=== PATIENT | female | born 1960 | race Caucasian/White ===

== ENCOUNTER 2019-12-04 11:19 | Outpatient (CLI) | payer OTHER, SELFPAY ==
--- NOTE | ~2019-12-04 | CT_ITS ---
EXAMINATION: CTA chest PE protocol DATE: 12/04/2019 12:18 CDT INDICATION: Pneumonia. Dyspnea. TECHNIQUE: Computed tomographic angiography (CTA) of the chest was performed with 100 mL Omnipaque-35 0 intravenous contrast. The dose-length product was 458.82 mGy-cm. Maximum intensity projection 3D-re constructions of the aorta and other arteries were constructed by the technologist on a separate work station. Automated exposure control and iterative reconstruction technique were employed. COMPARISON: Chest dated 11/11/2014 FINDINGS: No thoracic lymphadenopathy. Study is suboptimal for evaluation of peripheral pulmonary emb olism due to timing of contrast bolus. No large central pulmonary embolism is identified. Small left pleural effusion. Elevated right diaphragm. Small pericardial effusion. No evidence for aortic aneury sm or dissection. There is left lower lobe peripheral consolidation which may represent atelectasis o r developing pneumonia. There is right basilar atelectasis. No endobronchial lesion. IMPRESSION: 1. Limited study for evaluation of peripheral pulmonary arteries. No evidence for large central pulmo nary embolism. 2: Peripheral consolidation left lower lobe which may represent atelectasis or developing pneumonia. 3: Small left pleural effusion. 4: Small pericardial effusion. Reviewed, dictated and finalized at location A. IMPRESSION: 1. Limited study for evaluation of peripheral pulmonary arteries. No evidence f or large central pulmonary embolism. 2: Peripheral consolidation left lower lobe which may represent atelectasis or developing pneumonia. 3: Small left pleural effusion. 4: Small pericardial effusion.
[2019-12-04 11:56] LABS: Estimated Glomerular Filt Rate > 60
== END 2019-12-04 11:20 | disposition home or self-care (01) ==
PROVIDERS: PCP Family Medicine; Visit Provider Family Medicine
DX: J18.9 Pneumonia, unspecified organism (principal); R06.09 Other forms of dyspnea; J90 Pleural effusion, not elsewhere classified; I31.3 Pericardial effusion (noninflammatory)
CPT/HCPCS: 36415; 71275; Q9967

== ENCOUNTER 2020-06-30 10:49 | Outpatient (CLI) | payer OTHER, SELFPAY ==
--- NOTE | ~2020-06-30 | MR_ITS ---
EXAMINATION: MR knee LT wo con DATE: 06/30/2020 11:36 INDICATION: Left knee pain TECHNIQUE: Magnetic resonance imaging (MRI) of the left knee was performed without intravenous contra st. Sequences included coronal PD-weighted FSE, coronal PD-weighted FS FSE, sagittal T2-weighted FSE , sagittal PD-weighted FS FSE and axial PD weighted fat saturated FSE. COMPARISON: None. FINDINGS: Medial compartment: Medial meniscus is normal. Articular cartilage is normal. Lateral compartment: Complex lateral meniscal tear including a displaced bucket-handle flap which is seen extending anteri or to posteriorly along the lateral aspect of the intercondylar eminence. Partial-thickness cartilage loss with chondral surface irregularity at the lateral tibial plateau where there is underlying subc hondral edema. Additional partial thickness cartilage loss which appears to involve greater than 50% the cartilage thickness at the central weightbearing lateral femoral condyle. There is a subtle conca vity to the articular cortex at the anterior weightbearing lateral femoral condyle with underlying velazco barticular edema consistent with an either impaction or stress fracture. The overlying articular cart ilage appears to remain intact. Patellofemoral compartment: Deep chondral fissuring with minimal underlying subarticular edema at the medial patellar facet. 4 x 6 mm deep chondral ulceration with minimal underlying cortical irregularity at the inferior aspect of the medial trochlea. Ligaments and tendons: Anterior and posterior cruciate ligaments are normal. The medial collateral ligament and fibular miguel ateral ligament complex are normal. Minimal patellar and distal quadriceps tendinopathy. The visualiz ed medial and lateral hamstring tendons as well as the iliotibial band are normal. Fluid: Moderate-sized left knee joint effusion with mild synovitis at the suprapatellar pouch and more promi nent synovitis along the posterior margin of Hoffa's fat pad. No loose osteochondral bodies identifie d. Mcnair's cyst measuring 5.7 x 1.8 x 2.3 cm. Osseous/other: Minimal lateral patellar subluxation. No pathologic marrow replacing process. Subcutaneous varicositi es at the anterior and medial sides of the knee. IMPRESSION: 1. Complex lateral meniscal tear including medially displaced bucket-handle flap. 2. Mild marrow edema surrounding a shallow concavity to the articular cortex at the anterior weightbe aring lateral femoral condyle which could represent sequela prior impaction fracture or more chronic stress fracture potentially related to altered stress distribution resulting from the meniscal tear. 3. Mild lateral and patellofemoral osteoarthritis with regions of moderate to high-grade chondromalac ia. 4. Moderate sized left knee joint effusion and moderate-sized Mcnair's cyst. Reviewed, dictated and finalized at location A. IMPRESSION: 1. Complex lateral meniscal tear including medially displaced bucket-handle fla p. 2. Mild marrow edema surrounding a shallow concavity to the articular cortex at the anterior weightbearing lateral femoral condyle which could represent seque la prior impaction fracture or more chronic stress fracture potentially related to altered stress distribution resulting from the meniscal tear. 3. Mild lateral and patellofemoral osteoarthritis with regions of moderate to h igh-grade chondromalacia. 4. Moderate sized left knee joint effusion and moderate-sized Mcnair's cyst.
== END 2020-06-30 10:50 | disposition home or self-care (01) ==
LOC: ANHIMG 10:54
PROVIDERS: PCP Family Medicine; Visit Provider Nurse Practitioner Family
DX: S83.252A Bucket-handle tear of lateral meniscus, current injury, left knee, initial encounter (principal); M17.12 Unilateral primary osteoarthritis, left knee; M25.462 Effusion, left knee; M71.22 Synovial cyst of popliteal space [Baker], left knee; X58.XXXA Exposure to other specified factors, initial encounter
CPT/HCPCS: 73721

== ENCOUNTER 2020-07-29 14:57 | Outpatient (CLI) | payer OTHER, SELFPAY ==
--- NOTE | ~2020-07-29 | US_ITS ---
EXAMINATION: US venous doppler [facility] DATE: 07/29/2020 15:51 INDICATION: Left lower limb pain and swelling TECHNIQUE: Grayscale ultrasound images without and with compression and Doppler ultrasound images of the left lower extremity veins were obtained. COMPARISON: None. FINDINGS: The visualized portions of left common femoral vein, profunda (deep) femoral vein, femoral vein, popl iteal vein, peroneal veins, posterior tibial veins, gastrocnemius vein and greater saphenous vein out flow are patent. 5.1 x 0.7 x 2.6 cm Mcnair cyst at the left popliteal fossa. IMPRESSION: 1. No deep venous thrombosis in the left lower limb. 2. Small left Mncair's cyst. Reviewed, dictated and finalized at location . INSPECTOR IMPRESSION: 1. No deep venous thrombosis in the left lower limb. 2. Small left Mcnair's cyst.
== END 2020-07-29 14:58 | disposition home or self-care (01) ==
PROVIDERS: PCP Family Medicine; Visit Provider Nurse Practitioner Family
DX: M79.89 Other specified soft tissue disorders (principal); Z86.718 Personal history of other venous thrombosis and embolism; M71.22 Synovial cyst of popliteal space [Baker], left knee
CPT/HCPCS: 93971

== ENCOUNTER 2020-08-23 01:08 | Outpatient (CLI) | payer BC, SELFPAY ==
[2020-08-23 20:15] LABS: SARS-CoV-2 RNA PCR Negative
== END 2020-08-23 01:09 | disposition home or self-care (01) ==
LOC: ANHCOVIDDT 01:08
PROVIDERS: PCP Family Medicine; Visit Provider Orthopaedic Surgery
DX: Z01.818 Encounter for other preprocedural examination (principal); Z20.828 Contact with and (suspected) exposure to other viral communicable diseases
CPT/HCPCS: 87635; C9803; U0003

== ENCOUNTER 2020-08-23 07:48 | Outpatient (CLI) | payer BC, SELFPAY ==
--- NOTE | 2020-08-23 | ECG_ITS ---
Measurements Intervals [place] Rate: 61 P: 3 UT: 174 QRS: -12 QRSD: 125 T: -5 QT: 425 QTc: 430 Interpretive Statements SINUS RHYTHM VOLTAGE CRITERIA FOR LVH MINIMAL Q WAVES- HIGH LATERAL LEADS BORDERLINE T WAVE ABNORMALITY- ANT/INF LEADS BORDERLINE ECG Electronically Signed On 08-23-2020 13:39:33 CIPHER EXPERT by Aman Navarro D.O.
[2020-08-23 08:42] LABS: Anion Gap 4 mmol/L (8-16); Blood Urea Nitrogen 10 mg/dL (7-17); Calcium 9.5 mg/dL (8.4-10.2); Carbon Dioxide 34 mmol/L (22-30); Chloride 101 mmol/L (98-107); Estimated Glomerular Filt Rate > 60; Glucose 96 mg/dL (65-105); Potassium 4.1 mmol/L (3.4-5.0); Sodium 139 mmol/L (137-145)
== END 2020-08-23 07:49 | disposition home or self-care (01) ==
PROVIDERS: PCP Family Medicine; Visit Provider Anesthesiology
DX: Z01.818 Encounter for other preprocedural examination (principal); I10 Essential (primary) hypertension; R94.31 Abnormal electrocardiogram [ECG] [EKG]
CPT/HCPCS: 36415; 80048; 93005

== ENCOUNTER 2020-08-27 00:31 | Day surgery (SDC) | payer BC, SELFPAY ==
[2020-08-21 09:15] VITALS: BMI 28.3
--- NOTE | 2020-08-26 14:10 | WPDANESEPPF ---
Anes - Initial Pre Proc Eval Procedure: Operation Date: 08/27/20 13:00 Proposed Procedures p Left Knee Arthroscopy, Abrasion Arthroplasty, Proceed As Indicated - Tramaine Lanier MD Date/Time: 08/26/20 14:10 Surgeon: Tramaine Lanier MD Pre Op Diagnosis: Left Knee Lateral Meniscus Tear Patient Data Age: 60 Gender: F Height: 1.65 m Weight: 77.15 kg Allergies Allergy/AdvReac Type Severity Reaction Status Date / Time aspirin Allergy Severe Anaphylactic Verified 08/27/20 11:18 Shock NSAIDS (Non-Steroidal Allergy Severe Anaphylactic Verified 08/27/20 11:18 Anti-Inflamma Shock Home Medications Medication Instructions Recorded Confirmed Type cyclobenzaprine 10 mg tablet 10 mg PO TID #270 tablet 05/12/20 08/21/20 Rx montelukast 10 mg tablet 10 mg PO DAILY #90 tablet 06/03/20 08/27/20 Rx omeprazole 40 mg capsule,delayed 40 mg PO DAILY #90 cap 06/03/20 08/27/20 Rx release diltiazem HCl 180 mg 180 mg PO DAILY 06/23/20 08/27/20 History capsule,extended release 24 hr fluticasone propionate 50 2 spray INTRANASAL DAILY 06/23/20 08/27/20 History mcg/actuation nasal spray,suspension pregabalin 100 mg capsule 100 mg PO TID #90 cap 07/04/20 08/27/20 Rx chlorhexidine gluconate 4 % 1 applic TOPICAL ONCE #237 ml 07/08/20 08/27/20 Rx topical liquid fexofenadine-pseudoephedrine ER 1 tablet PO DAILY #30 tablet 07/31/20 08/27/20 Rx 180 mg-240 mg tablet,ext.release 24 hr albuterol sulfate 90 mcg/actuation 2 inh INHALATION Q4H PRN #6.7 g 08/20/20 08/27/20 Rx aerosol inhaler Breo Ellipta 1 inh INHALATION QAM 08/21/20 08/27/20 History biotin 5 mg PO DAILY 08/21/20 08/27/20 History furosemide 20 mg PO QPM 08/21/20 08/27/20 History Patient hx anesthesia problems: none Family hx anesthesia problems: none PMFSH Past Medical History Medical History (Updated 08/26/20 @ 14:10 by Zander Leon DO) Asthma Atrial fibrillation B12 deficiency anemia Dyspnea Effusion, left knee 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 Hypertension Lateral meniscus tear Left knee pain Leg swelling Myalgia and myositis, unspecified LUCAS (obstructive sleep apnea) Paralysis, diaphragm Patellofemoral pain syndrome Radiculopathy, cervicothoracic region Right foot pain Spinal stenosis, cervical region Vitamin D deficiency Family History Family History Father Hypertension Mother Cerebrovascular accident Family history of diabetes mellitus in first degree relative Family history of coronary artery disease Other Diabetes mellitus Family history of lung cancer Social History Social History Smoking packs per day: 0.5 Smoking cigarettes per day: 10.0 Years smoked: 2 Smoking pack-years: 1.00 Smoking status: Former smoker Tobacco type: cigarettes Smoking end date: 09/12/79 Alcohol intake: current Living arrangements: with family Spiritual care concerns: No Anes - Eval Final PreProcedure Day of Procedure 08/26/20 14:10 Patient weight: overweight Heart: regular rate and rhythm Lungs: clear to auscultation and normal air movement Airway: Mallampati scale class II Neurological: alert and oriented Last oral intake: >/= 8 hours ASA classification: III Emergent: no Anesthetic plan: proceed Anesthesia type and monitoring: general LMA and standard monitoring Informed Consent: The patient's anesthetic plan and its attendant risks and benefits were discussed with the patient/family/POA. Questions were solicited and answers provided to the satisfaction of the patient/family/POA.
[2020-08-27] VITALS (9 sets, daily range): BP systolic 120–144; BP diastolic 81–92; PULSE 51–97; RESP 12–16; TEMP 36.2–36.6; O2SAT 97–100
--- NOTE | 2020-08-27 07:25 | WPDHPUPDATE1 ---
History and Physical Update Update Date/Time: 08/27/20 07:25 History and Physical has been reviewed, including an updated exam of the patient. There are NO changes in the patient's condition. Risks, benefits, and alternatives have been discussed and questions answered. Patient agrees to proceed with procedure.
[2020-08-27] MEDS: ACETAMINOPHEN 500 MG TABLET 1000 MG PO (11:56)
[2020-08-27] MEDS: LACTATED RINGERS 1,000 ML 30 ML IV CONT ×2 (12:00→14:41)
[2020-08-27] MEDS: ceFAZolin 2 GM/D5W 50 ML 2 GM/50 ML BAG IVPB (13:14)
[2020-08-27] MEDS: BUPIVACAINE HCL 0.5% PF 30 ML VIAL INFILTRATE (13:36)
--- NOTE | 2020-08-27 14:39 | PM.PROC ---
Procedure Note - Detailed Date of procedure: 08/27/20 Pre-op diagnosis: Left Knee Lateral Meniscus Tear Post-op diagnosis: other (medial meniscus tear, lateral meniscus tear, chondromalacia, synovitis) Procedure performed: LEFT KNEE SCOPE WITH PARTIAL MEDIAL MENISCECTOMY AND MAJOR SYNOVECTOMY Description of procedure: PATIENT WAS TAKEN TO THE OR. THE LEFT LEG WAS PREPPED AND DRAPED STERILE. TROCARS WERE PLACED IN THE USUAL FASHION. CAMERA WAS INTRODUCED. THERE WAS CHONDROMALACIA TO THE PATELLA FEMORAL JOINT. THERE WAS A LOT OF SYNOVITIS IN ALL COMPARTMENTS. THE MEDIAL COMPARTMENT SHOWED MILD CHONDROMALACIA TO THE MED FEMORAL CONDYLE. A SHAVER WAS USED TO PREFORM A CHONDROPLASTY. THERE WAS NO TEAR TO THE MEDIAL MENISCUS. THE ACL WAS INTACT. THE LATERAL MENISCUS HAD A LARGE COMPLEX TEAR FROM THE MOST MEDIAL EDGE TO THE MAIN BODY. THE TEAR WAS RESECTED WITH A BITER AND A SHAVER UNTIL THERE WAS A SMOOTH BASE. AT LEAST 50% OF THE MENISCUS WAS RESECTED. THE LAT COMPARTMENT HAD MODERATE CHONDROMALACIA. THE PATELLO FEMORAL JOINT UNDERWENT CHONDROPLASTY. THERE WAS GRADE 3 CHONDROMALACIA IN MOST OF THE TROCHLEA AND PART OF THE PATELLA. SYNOVECTOMY WAS PREFORMED IN THE SUPERIOR MEDIAL COMPARTMENT AND IN HOFFA'S SYNOVIUM. THE PATELLA TRACKED NORMALLY WITHIN THE TROCHLEA. THE WOUNDS WERE APPROXIMATED WITH 4.0 NYLON. STERILE DRESSING WAS APPLIED. PATIENT WAS EXTUBATED. Anesthesia: GLMA Surgeon: Tramaine Lanier MD Estimated blood loss (mL): 5 Complications: No immediate complications Condition: stable Disposition: PACU
[2020-08-27] MEDS: fentaNYL CITRATE INJ (*CRX) 100 MCG/2 ML VIAL 25 MCG IV PUSH ×4 (15:10→15:22)
[2020-08-27] MEDS: oxyCODONE HCL (*CRX) 5 MG TAB IR PO (15:55)
== END 2020-08-27 16:53 | disposition home or self-care (01) ==
PROVIDERS: PCP Family Medicine; Visit Provider Orthopaedic Surgery
PROC: (CPT 29870; principal; 2020-08-27 13:00)
DX: M23.362 Other meniscus derangements, other lateral meniscus, left knee (principal); M65.862 Other synovitis and tenosynovitis, left lower leg; M94.262 Chondromalacia, left knee; I48.91 Unspecified atrial fibrillation; J45.909 Unspecified asthma, uncomplicated; I10 Essential (primary) hypertension; G47.33 Obstructive sleep apnea (adult) (pediatric); E55.9 Vitamin D deficiency, unspecified; Z87.891 Personal history of nicotine dependence
CPT/HCPCS: 29881; 29876; A9270; J0690; J1100; J2250; J2405; J2704; J3010; J7120

== ENCOUNTER 2020-09-08 16:35 | Outpatient (CLI) | payer BC, SELFPAY ==
--- NOTE | ~2020-09-08 | US_ITS ---
EXAMINATION: US venous doppler [facility] DATE: 09/08/2020 17:07 INDICATION: Left lower limb pain TECHNIQUE: Mckeon scale images without and with compression and Doppler images of the left lower extrem ity veins were obtained. COMPARISON: 07/29/2020 FINDINGS: The left common femoral vein, profunda femoral vein, femoral vein, popliteal vein, peroneal trunk, posterior tibial veins, and greater saphenous vein are patent. IMPRESSION: 1. Patent left lower extremity veins. No evidence of deep venous thrombosis. Reviewed, dictated and finalized at location A. 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
== END 2020-09-08 16:36 | disposition home or self-care (01) ==
PROVIDERS: PCP Family Medicine; Visit Provider Orthopaedic Surgery
DX: M79.662 Pain in left lower leg (principal)
CPT/HCPCS: 93971

== ENCOUNTER 2020-10-01 10:00 | Outpatient (RCR) | payer BC, SELFPAY ==
--- NOTE | 2020-09-15 11:51 | PTOPEVAL ---
INITIAL PHYSICAL THERAPY EVALUATION and PLAN OF CARE Thank you for referring Yi Carnes to [facility].? Yi is scheduled to be seen for physical therapy? 3x/week for 2 weeks, then 2x/wk x 2 wks. Please review, sign, date and return this plan of care PS. I agree with and certify that the following plan of care is medically necessary. Referring Physician Date Admitting Provider: Attending Provider: Tramaine Lanier MD Referring Provider: *PT Outpatient Evaluation Start: 09/15/20 10:21 Freq: Status: Active Protocol: Document 09/15/20 10:23 MUSTAPHA (Rec: 09/15/20 11:38 MUSTAPHA [id number]) Therapy Assessment Status Assessment Status Assessment Status Evaluation Outpatient Past Medical History Past Medical History Source of Past Medical History Recalled from Previous Visit, Confirmed with Patient/Family Neurological History Hx Other Neurological Disorders Yes: NEUROPATHY Cardiovascular History Hx Atrial Fibrillation Yes: OCT 2019 Hx Other Cardiac Disorders Yes: DR VALDIVIA LAST SEEN ~ EARLY SUMMER 2019 Respiratory History Hx Asthma Yes: INHALERS Hx Pneumonia Yes: OCT-NOVEMBER 2019 Hx Sleep Apnea Yes: STATES MILD SLEEP APNEA- DOES NOT USE CPAP CAN'T TOLERATE Hx Other Respiratory Disorders Yes: HX DIAPHRAGMATIC PARALYSIS R/T SPINAL CORD INJURY 2013 Gastrointestinal History Hx Gastroesophageal Reflux Disease Yes Genitourinary History Hx Genitourinary Disorders No Significant History Musculoskeletal History Hx Arthritis Yes: GENERALIZED Hx Crutches or Walker Use Yes: BOTH CURRENTLY USES Query Text:If Yes, Enter Crutches, WALKER OCC. Walker, or Both in the Comment Hx Orthopedic Surgery Yes: L knee arthroscopy 2019 Hx Spinal Surgery Yes: 2013 SPINAL CORD INJURY CERVICAL SURGERY Hx Other Musculoskeletal Disorders Yes: LT KNEE LATERAL MENISCUS TEAR Hematological History Hx Hematological Disorders No Significant History Endocrine History Hx Endocrine Disorders No Significant History HEENT History Hx Tonsillectomy Yes: A CHILD Hx Sinus Problems Yes: ALLERGIES Hx Other HEENT Disorders Yes: GLASSES Integumentary History Hx Skin Disorders No Significant History Reproductive History Hx Hysterectomy Yes Psychosocial History Hx Psychiatric Disorders No Significant History Pain History History of Any Previous or Ongoing No Significant History Instance of Pain Anesthesia History Hx Anesthesia Reactions
--- NOTE | 2020-10-01 16:34 | PTOPEVAL ---
PHYSICAL THERAPY DISCHARGE SUMMARY Thank you for referring Yi Carnes to [facility] Linda has been seen in PT x 8 visits. With her return back to work, she will not be able to attend PT. She is to continue with her HEP. Most goals have been met. I agree with Linda's discharge from PT. Referring Physician Date Admitting Provider: Attending Provider: Tramaine Lanier MD Referring Provider: *PT Outpatient Evaluation Start: 09/15/20 10:21 Freq: Status: Active Protocol: Document 10/01/20 16:26 MUSTAPHA (Rec: 10/01/20 16:34 MUSTAPHA [id number]) Therapy Assessment Status Assessment Status Assessment Status Discharge Evaluation Information Problem Subjective Information Linda reports that she is able Query Text:As Reported By Patient/ to return to light duty work Family with restrictions which her employer is able to accommodate. Her work hours will not allow her to continue with PT at this clinic. She expresses confidence in her ability to continue with HEP. Pain Assessment Timing of Pain Assessment Timing of Pain Assessment Assessment Pain Scale Pain Scale Used Numeric (1 - 10) Self Report Pain Assessment Left Knee(s) Reported Pain Level 5 Lowest Pain Intensity 3 Greatest Pain Intensity 10 Pain Score Pain Score 5: Self Report Interventions Used Interventions Used By Clinicians Exercise,Ice Lower Extremity Range of Motion Knee Range of Motion Left Knee Flexion Range of Motion - Active 130 Knee Flexion Range of Motion - Passive 0 Knee Extension Range of Motion - Active 2 Query Text: Knee Range of Motion Limitations Soft Tissue Restriction Lower Extremity Muscle Strength Testing Hip Strength Left Hip Flexion Strength 4- Good - Hip Extension Strength 5 Normal Hip Abduction Strength 4 Good Hip Medial Rotation Strength 5 Normal Hip Lateral Rotation Strength 4 Good Knee Strength Left Knee Flexion Strength 5 Normal Knee Extension Strength 5 Normal Gait Assessment Gait Pattern Assessment Other Gait Observations heel/toe pattern present with L LE, equal stance and swing phases Rehab Teaching Rehab Teaching Teaching Topic Rehab Teaching Topic Components Home Program As Pertains To Technique Recipient Patient Learning Preferences Audio,Demonstration,Discussion ,One-on-One Instruction,Visual ,Written Barriers
== END 2020-10-14 10:11 | disposition home or self-care (01) ==
LOC: ANHHIPT 10:00
PROVIDERS: PCP Family Medicine; Visit Provider Orthopaedic Surgery
DX: Z48.89 Encounter for other specified surgical aftercare (principal)
CPT/HCPCS: 97110; 97161

== ENCOUNTER → 2021-05-26 11:47 | Outpatient (CLI) | payer OTHER, SELFPAY ==
--- NOTE | ~2021-05-26 | XR_ITS ---
XR chest 2V 05/26/2021 12:49 Indication: Acute bronchitis. Congestion and cough. Procedure: 2 view chest Comparison: 11/11/2014 Findings: There is right basilar atelectasis with elevation of the right diaphragm. Heart size normal . Left basilar atelectasis. No edema, significant effusion or pneumothorax. No acute osseous abnormal ity. Impression: 1: Bibasilar atelectasis. Reviewed, dictated and finalized at location A. Impression: 1: Bibasilar atelectasis.
== END ==
PROVIDERS: PCP Family Medicine; Visit Provider Physician Assistant Medical
DX: J20.9 Acute bronchitis, unspecified (principal); R91.8 Other nonspecific abnormal finding of lung field
CPT/HCPCS: 71046

== ENCOUNTER → 2022-03-08 17:45 | Outpatient (CLI) | payer OTHER, SELFPAY ==
--- NOTE | ~2022-03-08 | XR_ITS ---
XR chest 2V 03/08/2022 18:08 Indication: Cough. Procedure: 2 view chest Comparison: Comparison to multiple prior studies sequentially, with oldest reviewed study dated 10/2014. Findings: Elevated right diaphragm. Right basilar atelectasis. No focal pneumonia, edema, pleural eff usion or pneumothorax. No acute osseous abnormality. Impression: 1: Subsegmental atelectasis right lung base with chronic elevation of the right diaphragm. Reviewed, dictated and finalized at location A. Impression: 1: Subsegmental atelectasis right lung base with chronic elevation of the right diaphragm.
== END ==
PROVIDERS: PCP Family Medicine; Visit Provider Nurse Practitioner Family
DX: R05.9 Cough, unspecified (principal); J98.11 Atelectasis
CPT/HCPCS: 71046

== ENCOUNTER 2023-01-25 08:48 | Outpatient (CLI) | payer OTHER, SELFPAY ==
--- NOTE | 2023-01-25 11:00 | NEURO_ITS ---
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 At present complaining of numbness of hands. # Left ulnar neuropathy across the elbow . # Needle/EMG exam revealed neurogenic changes in multiplemuscles without active fibrillations suggestive of chronic residual changes from the previous trauma. # Clinical correlation recommended. Nerve Conduction Studies Anti Sensory Summary Table Stim Site NR Peak (ms) P-T Amp (?V) Site1 Site2 Delta-P (ms) Dist (cm) Adin (m/s) Left Median Anti Sensory (2-3nd Digit) Wrist 3.2 74.5 Wrist 2-3nd Digit 3.2 14.0 44 Wrist 3.4 39.0 Wrist 2-3nd Digit 3.2 14.0 44 Right Median Anti Sensory (2-3nd Digit) Wrist 3.7 50.8 Wrist 2-3nd Digit 3.7 14.0 38 Wrist 3.6 46.9 Wrist 2-3nd Digit 3.7 14.0 38 Left Radial Anti Sensory (Base 1st Digit) Wrist 1.8 42.9 Wrist Base 1st Digit 1.8 0.0 Right Radial Anti Sensory (Base 1st Digit) Wrist 2.7 15.0 Wrist Base 1st Digit 2.7 0.0 Left Ulnar Anti Sensory (5th Digit) Wrist 3.1 40.5 Wrist 5th Digit 3.1 14.0 45 Right Ulnar Anti Sensory (5th Digit) Wrist 3.5 17.7 Wrist 5th Digit 3.5 14.0 40 Motor Summary Table Stim Site NR Onset (ms) O-P Amp (mV) Site1 Site2 Delta-0 (ms) Dist (cm) Adin (m/s) Left Median Motor (Abd Poll Brev) Wrist 3.6 3.6 Elbow Wrist 4.9 30.0 61 Elbow 8.5 3.5 Right Median Motor (Abd Poll Brev) Wrist 4.1 4.9 Elbow Wrist 5.2 29.0 56 Elbow 9.3 5.4 Left Ulnar Motor (Abd Dig Minimi) Wrist 2.9 4.8 A Elbow Wrist 5.9 28.0 47 A Elbow 8.8 3.6 B Elbow Wrist 4.3 22.0 51 B Elbow 7.2 3.8 Right Ulnar Motor (Abd Dig Minimi) Wrist 3.4 4.0 A Elbow Wrist 5.2 29.0 56 A Elbow 8.6 3.7 F Wave Studies NR F-Lat (ms) L-R F-Lat (ms) Left Median (Mrkrs) (Abd Poll Brev) 29.53 3.45 Right Median (Mrkrs) (Abd Poll Brev) 32.98 3.45 Left Ulnar (Mrkrs) (Abd Dig Min) 30.82 1.81 Right Ulnar (Mrkrs) (Abd Dig Min) 32.63 1.81 EMG Side Muscle Nerve Root Ins Act Fibs Amp Dur Recrt Comment Right 1stDorInt Ulnar C8-T1 Nml Nml Incr >12ms Reduced Right Ext Indicis Radial (Post Int) C7-8 Nml Nml Incr >12ms Reduced Right Ext Digitorum Radial (Post Int) C7-8 Nml Nml Incr >12ms Reduced Right BrachioRad Radial C5-6 Nml Nml Incr >12ms Reduced Right PronatorTeres Median C6-7 Nml Nml Incr >12ms Reduced Right Abd Poll Brev Median C8-T1 Nml Nml Incr >12ms Reduced Left 1stDorInt Ulnar C8-T1 Nml Nml Incr >12ms Reduced Left Ext Indicis Radial (Post Int) C7-8 Nml Nml Incr >12ms Reduced Left Ext Digitorum Radial (Post Int) C7-8 Nml Nml Incr >12ms Reduced Left BrachioRad Radial C5-6 Nml Nml Incr >12ms Reduced Left PronatorTeres Median C6-7 Nml Nml Incr >12ms Reduced Left Abd Poll Brev Median C8-T1 Nml Nml Incr >12ms Reduced Right Biceps Musculocut C5-6 Nml Nml Incr >12ms Reduced Right Triceps Radial C6-7-8 Nml Nml Incr >12ms Reduced Right Deltoid Axillary C5-6 Nml Nml Incr >12ms Reduced Left Biceps Musculocut C5-6 Nml Nml Incr >12ms Reduced Left Triceps Radial C6-7-8 Nml Nml Incr >12ms Reduced Left Deltoid Axillary C5-6 Nml Nml Incr >12ms Reduced Left ABD Dig Min Ulnar C8-T1 Nml Nml Incr >12ms Reduced Right ABD Dig Min Ulnar C8-T1 Nml Nml Incr >12ms Reduced MTDD
== END 2023-01-25 08:49 | disposition home or self-care (01) ==
LOC: ANHNEURO 08:48
PROVIDERS: PCP Family Medicine; Visit Provider Plastic Surgery
DX: R20.2 Paresthesia of skin (principal); G56.22 Lesion of ulnar nerve, left upper limb
CPT/HCPCS: 95886; 95911

== ENCOUNTER 2023-03-21 11:58 | Outpatient (CLI) | payer OTHER, SELFPAY ==
--- NOTE | ~2023-03-21 | XR_ITS ---
EXAMINATION: XR hip RT min 2V DATE: 03/21/2023 12:35 INDICATION: Right hip pain. TECHNIQUE: 3 views of right hip were obtained. COMPARISON: None. FINDINGS: Bone alignment is normal. No fracture. Right hip joint space is normal. There is severe low er lumbar spondylosis. IMPRESSION: 1. Normal right hip joint. Reviewed, dictated and finalized at location E. IMPRESSION: 1. Normal right hip joint.
--- NOTE | ~2023-03-21 | XR_ITS ---
EXAMINATION: XR lumbar spine 6V w bending DATE: 03/21/2023 12:35 INDICATION: Low back pain. Right hip pain. TECHNIQUE: 7 views of lumbar spine including flexion and extension views were obtained. COMPARISON: None. FINDINGS: There is 23 degrees levoscoliosis of thoracolumbar spine. Vertebral body heights are normal . The spine is hypomobile with flexion and extension. There is moderately decreased disc height at L1 -L2 and L2-L3, mildly decreased disc height at L3-L4 and L4-L5, and moderately decreased disc height at L5-S1. There is multilevel facet joint osteoarthritis, bilaterally at L1-L2 and on the right from L2-L3 through L5-S1. IMPRESSION: 1. Moderate lumbar spondylosis. 2. Thoracolumbar levoscoliosis. Reviewed, dictated and finalized at location E.
== END 2023-03-21 11:59 ==
PROVIDERS: PCP Family Medicine; Visit Provider Family Medicine
DX: M25.551 Pain in right hip (principal); M47.896 Other spondylosis, lumbar region
CPT/HCPCS: 72114; 73502

== ENCOUNTER 2023-05-23 14:51 | Outpatient (CLI) | payer OTHER, SELFPAY ==
--- NOTE | ~2023-05-23 | MR_ITS ---
MRI of the lumbar spine Clinical History: Back pain Technique: Axial T2-weighted images, and sagittal T1-weighted, T2-weighted, and T2 fat-sat images wer e acquired. Findings: No acute fracture identified. Schmorl's node noted at the superior endplate of L4, chronic. There is 3 mm retrolisthesis of L1 over L2. There is 3 mm retrolisthesis of L2 over L3. No suspiciou s bone marrow signal abnormality identified. At L1-L2, there is severe degenerative disc narrowing. There is minimal disc bulge and moderate facet arthropathy. No central canal stenosis. There is severe left neural foraminal narrowing. Right neura l foramen preserved. At L2-L3, there is advanced degenerative disc narrowing. There is minimal disc bulge with mild to mod erate facet arthropathy. No central canal stenosis. There is moderate left neural foraminal narrowing . Right neural foramen preserved. At L3-L4, there is mild degenerative disc narrowing. There is mild disc bulge and moderate facet arth ropathy. No central canal stenosis. There is advanced right neural foraminal narrowing. Left neural f oramen preserved. At L4-L5, there is minimal disc bulge and mild to moderate facet arthropathy. No central canal stenos is or neural foraminal narrowing. At L5-S1, there is moderate degenerative disc narrowing, with diffuse disc bulge and moderate facet a rthropathy. No central canal stenosis. There is moderate to advanced right neural foraminal narrowing , and mild left neural foraminal narrowing. Paravertebral soft tissues are unremarkable. Impression: Moderate degenerative spondylosis, as above, with multilevel neural foraminal narrowing. 3 mm retrolisthesis of L1 over L2. 3 mm retrolisthesis of L2 over L3. Reviewed, dictated and finalized at [facility]. Impression: Moderate degenerative spondylosis, as above, with multilevel neural foraminal n arrowing. 3 mm retrolisthesis of L1 over L2. 3 mm retrolisthesis of L2 over L3.
== END 2023-05-23 14:52 | disposition home or self-care (01) ==
PROVIDERS: PCP Family Medicine; Visit Provider Nurse Practitioner Family
DX: M47.896 Other spondylosis, lumbar region (principal)
CPT/HCPCS: 72148

== ENCOUNTER 2024-07-06 08:55 | Outpatient (CLI) | payer OTHER, SELFPAY ==
--- NOTE | ~2024-07-06 | MR_ITS ---
EXAMINATION: MR cervical spine wo/w con DATE: 07/06/2024 10:14 INDICATION: Cervical radiculopathy. TECHNIQUE: Magnetic resonance imaging (MRI) of the cervical spine was performed without and with 15 m L MultiHance intravenous contrast. COMPARISON: Cervical spine radiographs 07/06/2024 FINDINGS: There is 21 degrees levoscoliosis of cervicothoracic spine. There is kyphosis of cervical s pine. There is 2 mm anterolisthesis of C7 on T1. Vertebral body heights are normal. There are right h emilaminectomies from C4 to C6 with instrumentation. There is mildly decreased disc height at C3-C4 a nd severely decreased disc height from C4-C5 through C7-T1. There is increased T2-weighted signal int ensity in the spinal cord at C5, consistent with myelomalacia. The following disc levels are specifi augustin discussed: C2-C3: There is a central protrusion. There is no uncovertebral joint osteoarthritis. There is severe bilateral facet joint osteoarthritis. There is mild left neural foraminal stenosis. There is no cent ral canal stenosis. C3-C4: There is a left central extrusion. There is moderate right and mild left uncovertebral joint o steoarthritis. There is moderate bilateral facet joint osteoarthritis. There is moderate right and mi ld left neural foraminal stenosis. There is mild central canal stenosis. C4-C5: The disc is bulging. There is severe bilateral uncovertebral joint osteoarthritis. There is mi ld bilateral facet joint osteoarthritis. There is mild right and moderate left neural foraminal steno sis. There is no central canal stenosis. C5-C6: The disc is bulging. There is severe bilateral uncovertebral joint osteoarthritis. There is no facet joint osteoarthritis. There is mild left neural foraminal stenosis. There is no central canal stenosis. C6-C7: The disc does not extend beyond the endplate margin. There is mild bilateral uncovertebral rios nt hypertrophy. There is severe left facet joint osteoarthritis. There is mild left neural foraminal stenosis. There is no central canal stenosis. C7-T1: The disc is bulging. There is mild bilateral uncovertebral joint hypertrophy. There is severe bilateral facet joint osteoarthritis. There is mild right and moderate left neural foraminal stenosis . There is mild central canal stenosis. IMPRESSION: 1. Severe cervical spondylosis. 2. Cervicothoracic levoscoliosis. 3. Myelomalacia at C5. Reviewed, dictated and finalized at location [facility].
--- NOTE | ~2024-07-06 | XR_ITS ---
EXAMINATION: [id number] DATE: 07/06/2024 09:15 INDICATION: Cervical radiculopathy. TECHNIQUE: 3 views of cervical spine were obtained. COMPARISON: None. FINDINGS: There is 21 degrees levoscoliosis of cervicothoracic spine. There is kyphosis of cervical s pine. Vertebral body heights are normal. There is mildly decreased disc height at C3-C4 and severely decreased disc height from C4-C5 through C6-C7. There is multilevel mild facet joint hypertrophy. The re are right-sided laminectomies from C4 to C6 with instrumentation. There is mild central canal sten osis at C3-C4, C4-C5, and C5-C6 with posterior decompression. No prevertebral soft tissue swelling. IMPRESSION: 1. Severe cervical spondylosis. 2. Cervicothoracic levoscoliosis. Reviewed, dictated and finalized at location [facility].
== END 2024-07-06 08:56 | disposition home or self-care (01) ==
PROVIDERS: PCP Family Medicine; Visit Provider Nurse Practitioner Family
DX: M47.22 Other spondylosis with radiculopathy, cervical region (principal)
CPT/HCPCS: 72040; 72156; A9577

== ENCOUNTER 2025-03-05 10:45 | Outpatient (CLI) | payer OTHER, SELFPAY ==
--- NOTE | ~2025-03-05 | XR_ITS ---
EXAM/PROCEDURE: XR chest 2V - 03/05/2025 10:49 CDT HISTORY: 64 years old Female with J40 - Bronchitis, not specified as acute or chronic TECHNIQUE: Two view(s) of the chest. COMPARISON: 03/08/2022 FINDINGS: LUNGS/ PLEURA: New opacity in the anterior right lung base, new since prior examination. This may rep resent atelectasis, scarring versus pneumonia. No appreciable pneumothorax or large pleural effusion. Chronic elevation of right hemidiaphragm causing compressive atelectasis, grossly unchanged. HEART/ MEDIASTINUM: Heart appears normal in size. BONES: No acute osseous abnormality. OTHER: Visualized upper abdomen is unremarkable. IMPRESSION: New opacity in the anterior right lung base, new since prior examination. This may represent atelecta sis, scarring versus pneumonia. Reviewed, dictated and finalized at location [facility]. IMPRESSION: New opacity in the anterior right lung base, new since prior examination. This may represent atelectasis, scarring versus pneumonia.
== END 2025-03-05 10:46 | disposition home or self-care (01) ==
LOC: MICIMG 10:46
PROVIDERS: PCP Family Medicine; Visit Provider Family Medicine
DX: J40 Bronchitis, not specified as acute or chronic (principal)
CPT/HCPCS: 71046

== ENCOUNTER 2025-03-19 11:30 | Outpatient (CLI) | payer OTHER, SELFPAY ==
--- NOTE | ~2025-03-19 | XR_ITS ---
CHEST RADIOGRAPH, PA AND LATERAL CLINICAL HISTORY: J18.9 - Pneumonia, unspecified organism . COMPARISON: 03/05/2025 TECHNIQUE: PA and lateral views of the chest. FINDINGS The cardiomediastinal silhouette is unremarkable. Elevation of the right hemidiaphragm with adjacent compressive atelectasis. The remainder the lungs are clear. IMPRESSION: No focal infiltrate or effusion. Reviewed, dictated and finalized at location A.
== END 2025-03-19 11:31 | disposition home or self-care (01) ==
PROVIDERS: PCP Family Medicine; Visit Provider Nurse Practitioner Adult Health
DX: J18.9 Pneumonia, unspecified organism (principal)
CPT/HCPCS: 71046